=== PATIENT | male | born 1960 | race Caucasian/White ===

== ENCOUNTER 2018-07-22 09:06 | Inpatient (IN) | payer OTHER ==
[~2018-07-22] VITALS: Ht 195.6 cm; Wt 115.7 kg
[~2018-07-22 09:06] MED LIST: IBUP-1223 PO
[2018-07-22] MEDS ORDERED: ACETAMINOPHEN 500 MG TABLET PO ONE (09:30)
[2018-07-22] MEDS ORDERED: OxyconTIN ER 20 MG TAB.ER PO ONE (09:30)
[2018-07-22] MEDS ORDERED: GABAPENTIN 300 MG CAPSULE PO ONE (09:30)
[2018-07-22] MEDS ORDERED: LACTATED RINGERS 1,000 ML IV SCH (09:31)
[2018-07-22] MEDS ORDERED: FENTANYL PF 250 MCG/5ML ONE ×2 (09:58→12:02)
[2018-07-22] MEDS ORDERED: MIDAZOLAM 1 MG/ML, 2ML ONE (09:58)
[2018-07-22] MEDS ORDERED: PROPOFOL 10 MG/ML, 20ML ONE (09:59)
[2018-07-22] MEDS ORDERED: SUCCINYLCHOLINE 20 MG/ML, 10ML ONE (10:00)
[2018-07-22] MEDS ORDERED: ROCURONIUM 10MG/ML,5ML ONE (10:00)
[2018-07-22] MEDS ORDERED: CEFAZOLIN 1,000 MG ONE ×2 (10:01)
[2018-07-22] MEDS ORDERED: SODIUM CHLORIDE 0.9% PF 10ML ONE (10:01)
[2018-07-22] MEDS ORDERED: DEXAMETHASONE 4 MG/ML, 1ML ONE ×3 (10:01)
[2018-07-22] MEDS ORDERED: PROPOFOL 50 ML ONE ×3 (10:03→12:53)
[2018-07-22] MEDS ORDERED: LIDOCAINE/PF 0.5% ,50ML ONE (10:49)
[2018-07-22] MEDS ORDERED: THROMBIN 5,000 UNIT VIAL TP ONE (10:49)
[2018-07-22] MEDS ORDERED: VANCOMYCIN 500 MG ONE ×2 (10:49→10:51)
[2018-07-22] MEDS ORDERED: EPINEPHRINE 1 MG/ML, 1ML ONE (10:50)
[2018-07-22] MEDS ORDERED: VANCOMYCIN 1,000 MG ONE (10:50)
[2018-07-22] MEDS ORDERED: TRIAMCINOLONE ACETONIDE 40 MG/ML, 1ML ONE (10:51)
[2018-07-22] MEDS ORDERED: hydrALAzine 20 MG/ML, 1ML IV PRN (11:30)
[2018-07-22] MEDS ORDERED: ONDANSETRON 2MG/ML, 2ML IV PRN ×2 (11:30→17:00)
[2018-07-22] MEDS ORDERED: MEPERIDINE/PF 25MG/0.5ML IVPush PRN (11:30)
[2018-07-22] MEDS ORDERED: OXYcodone 5 MG/5 ML ORAL.SOL UDC PO PRN (11:30)
[2018-07-22] MEDS ORDERED: MORPHINE SULFATE 4 MG/ML, 1ML IVPush PRN (11:30)
[2018-07-22] MEDS ORDERED: PROMETHAZINE 25 MG/ML, 1ML IV PRN (11:30)
[2018-07-22] MEDS ORDERED: ACETAMINOPHEN 325 MG TABLET PO PRN (11:30)
[2018-07-22] MEDS ORDERED: ONDANSETRON ODT 8 MG PO PRN (11:30)
[2018-07-22] MEDS ORDERED: HYDROmorphone 1 MG/ML, 1ML IV PRN (11:30)
[2018-07-22] MEDS ORDERED: PROMETHAZINE 25 MG/ML, 1ML IM PRN ×3 (11:30→17:00)
[2018-07-22] MEDS ORDERED: LABETALOL 5MG/ML, 20ML IV PRN (11:30)
[2018-07-22] MEDS ORDERED: DIAZEPAM 5 MG/ML, 2ML IVPush PRN (11:30)
[2018-07-22] MEDS ORDERED: OXYcodone 5 MG/5 ML ORAL.SOL UDC ONE (14:22)
[2018-07-22] MEDS ORDERED: FENTANYL PF 100 MCG/2ML ONE (14:22)
[2018-07-22] MEDS: FENTANYL PF 100 MCG/2ML IV PRN ×2 (14:25→14:35)
[2018-07-22] MEDS ORDERED: MAGNESIUM HYDROXIDE 8%, 30ML UDC PO PRN (17:00)
[2018-07-22] MEDS ORDERED: HYDROcodone/APAP 5/325 TABLET PO PRN (17:00)
[2018-07-22] MEDS: D5%-0.9% NACL+KCL 20MEQ 1,000 ML IV SCH (17:00)
[2018-07-22] MEDS ORDERED: morphine SULFATE 10 MG/ML, 1ML IV PRN (17:00)
[2018-07-22] MEDS ORDERED: BISACODYL 10 MG SUPP PR PRN (17:00)
[2018-07-22] MEDS: CEFAZOLIN PMX 1GM/50ML 50 ML IVPB SCH (18:53)
[2018-07-22] MEDS: HYDROcodone/APAP 10/325 MG TABLET PO PRN (20:02)
[2018-07-22 20:17] VITALS: BP 148/87
[2018-07-23 00:25] VITALS: BP 116/69
[2018-07-23] MEDS: HYDROcodone/APAP 10/325 MG TABLET PO PRN ×3 (01:31→10:28)
[2018-07-23] MEDS: CEFAZOLIN PMX 1GM/50ML 50 ML IVPB SCH (02:19)
[2018-07-23] MEDS: D5%-0.9% NACL+KCL 20MEQ 1,000 ML IV SCH (02:57)
[2018-07-23 04:30] VITALS: BP 122/74
[2018-07-23 05:28] LABS: BASOPHILS % (AUTO) 0 % (0-1); EOSINOPHILS % (AUTO) 0 % (1-7); LYMPHOCYTES # (AUTO) 0.77 x10^3/uL (1-3.4); LYMPHOCYTES % (AUTO) 5 % (22-44); MD NO; MEAN CORPUSCULAR HEMOGLOBIN 29.9 pg (27.5-34.5); MEAN CORPUSCULAR HGB CONC 33.7 g/dL (33.2-36.2); MEAN CORPUSCULAR VOLUME 88.7 fL (81-97); MEAN PLATELET VOLUME 8.6 fL (7.4-10.4); MONOCYTES # (AUTO) 0.52 x10^3/uL (0.2-0.8); MONOCYTES % (AUTO) 3 % (2-9); NEUTROPHILS # (AUTO) 14.24 x10^3/uL (1.8-6.8); NEUTROPHILS % (AUTO) 92 % (42-75); PLATELET COUNT 265 x10^3/uL (130-400); RED BLOOD COUNT 4.95 x10^6/uL (4.38-5.82); RED CELL DISTRIBUTION WIDTH 14.3 % (9.4-14.8)
[2018-07-23 05:40] LABS: ALANINE AMINOTRANSFERASE 59 U/L (12-78); ALBUMIN 3.4 g/dL (3.4-5.0); CALCIUM 8.5 mg/dL (8.5-10.1); CHLORIDE 104 mmol/L (98-107); CREATININE 0.91 mg/dL (0.7-1.3)
[2018-07-23 05:49] LABS: ALKALINE PHOSPHATASE 75 U/L (45-117); ANION GAP 10 mmol/L (5-15); BILIRUBIN,TOTAL 0.4 mg/dL (0.2-1.0); CHOL/HDL RATIO 6.4; CHOLESTEROL, TOTAL 314 mg/dL (140-239); FREE T4 (FREE THYROXINE) 1.07 ng/dL (0.76-1.46); HDL CHOL % 16 % (26-37); HDL CHOLESTEROL (DIRECT) 49 mg/dL (40-60); LDL CHOLESTEROL,CALCULATED 202 mg/dL (54-169); LDL/HDL RATIO 4.1 (0.5-3.0); THYROID STIMULATING HORMONE 0.582 mIU/L (0.358-3.740); TOTAL PROTEIN 7.3 g/dL (6.4-8.2); TRIGLYCERIDES 313 mg/dL (50-200); VLDL CHOLESTEROL 63 mg/dL (0-25)
[2018-07-23 07:08] VITALS: BP 127/82
[2018-07-23] MEDS ORDERED: SENNA/DOCUSATE TABLET PO SCH (09:00)
[2018-07-23] MEDS ORDERED: HYDR-3307 PO (10:43)
[2018-07-23 12:46] VITALS: BP 138/80
== END 2018-07-23 13:16 | disposition home or self-care (01) | DRG 30 ==
LOC: OUT 09:06 → EDSTATUS 13:00 → 4NOR 15:18 → OUT 15:23 → 4NOR 15:23
PROVIDERS: ADMIT Orthopaedic Surgery Orthopaedic Surgery of the Spine; ATTEND Orthopaedic Surgery Orthopaedic Surgery of the Spine
PROC: 0RH104Z Insertion of Internal Fixation Device into Cervical Vertebral Joint, Open Approach (ICD-10-PCS; 2018-07-22)
PROC: 0RB30ZZ Excision of Cervical Vertebral Disc, Open Approach (ICD-10-PCS; principal; 2018-07-22 11:30)
DX: M54.12 Radiculopathy, cervical region (principal); M48.02 Spinal stenosis, cervical region; M48.061 Spinal stenosis, lumbar region without neurogenic claudication; E78.1 Pure hyperglyceridemia; E78.5 Hyperlipidemia, unspecified; I48.0 Paroxysmal atrial fibrillation; Z83.3 Family history of diabetes mellitus; Z82.49 Family history of ischemic heart disease and other diseases of the circulatory system; Z87.891 Personal history of nicotine dependence; E11.65 Type 2 diabetes mellitus with hyperglycemia
CPT/HCPCS: 36415; 72040; 72050; 80053; 80061; 83036; 84439; 84443; 85025; 95938; 95941; C1713; G0378; J0171; J0690; J1100; J2001; J2250; J2704; J3010; J3301; J3370; C1762; J0330; J7120